=== PATIENT | male | born 1955 | race Caucasian/White ===

== ENCOUNTER 2019-03-28 22:55 | Inpatient (IN) | payer OTHER ==
[~2019-03-28] VITALS: Ht 170.2 cm; Wt 62.5 kg
[2019-03-28] MEDS ORDERED: SODIUM CHLORIDE 0.9% 1,000 ML IV ONE (22:58)
[2019-03-28] MEDS ORDERED: LORazepam 2 MG/ML VIAL IVP ONE (23:00)
[2019-03-28] MEDS ORDERED: ONDANSETRON HCL 4 MG/2 ML VIAL IVP ONE (23:00)
[2019-03-28 23:42] LABS: BASOPHILS % (AUTO) 0.5 % (0.0-2.0); EOSINOPHILS % (AUTO) 0.3 % (1.0-6.0); HEMATOCRIT 50.9 % (41-53); HEMOGLOBIN 17.4 g/dL (13.5-17.5); LYMPHOCYTES # (AUTO) 1.2 K/uL (1.0-4.8); LYMPHOCYTES % (AUTO) 14.3 % (22.0-44.0); MEAN CORPUSCULAR HEMOGLOBIN 32.7 pg (26.0-34.0); MEAN CORPUSCULAR HGB CONC 34.2 G/dL (31.0-37.0); MEAN CORPUSCULAR VOLUME 96 fL (80-100); MONOCYTES % (AUTO) 12.2 % (2.0-9.0); NEUTROPHILS % (AUTO) 72.7 % (40.0-70.0); PLATELET COUNT (AUTO) 236 K/uL (150-450); RED BLOOD CELL COUNT(AUTO) 5.31 MIL/uL (4.50-5.90); RED CELL DISTRIBUTION WIDTH 13.7 % (11.5-14.5)
[2019-03-28 23:51] LABS: ANION GAP 10 mmol/L (8-16); CALCIUM, TOTAL 9.4 mg/dL (8.8-10.5); CARBON DIOXIDE 31 mmol/L (22-29); CHLORIDE 98 mmol/L (98-107); GLOMERULAR FILTR. RATE CALC > 60 mL/min (>60); GLUCOSE,RANDOM 99 mg/dL (70-110); POTASSIUM 3.8 mmol/L (3.5-5.1); SODIUM SERUM 139 mmol/L (136-145); UREA NITROGEN, BLOOD 12 mg/dL (7-18)
[2019-03-28 23:57] LABS: ALANINE AMINOTRANSFERASE 130 U/L (12-78); ALBUMIN 4.1 g/dL (3.4-5.0); ALKALINE PHOSPHATASE 52 U/L (46-116); ASPARTATE AMINOTRANSFERASE 175 U/L (15-37); BILIRUBIN,TOTAL 1.1 mg/dL (0.1-1.0); TOTAL PROTEIN, SERUM 8.7 g/dL (6.4-8.2)
[2019-03-29 00:06] LABS: AMPHET/METH SCREEN,URINE NEGATIVE (NEGATIVE); BARBITURATE SCREEN, URINE NEGATIVE (NEGATIVE); BENZODIAZEPINES SCREEN,URINE NEGATIVE (NEGATIVE); CANNABINOID SCREEN,URINE NEGATIVE (NEGATIVE); COCAINE SCREEN,URINE NEGATIVE (NEGATIVE); METHADONE SCREEN, URINE NEGATIVE (NEGATIVE); OPIATE SCREEN,URINE NEGATIVE (NEGATIVE)
[2019-03-29 00:18] LABS: PHENCYCLIDINE SCREEN,URINE NEGATIVE (NEGATIVE)
[2019-03-29] MEDS ORDERED: ACETAMINOPHEN 325 MG TABLET PO PRN (00:30)
[2019-03-29] MEDS ORDERED: ONDANSETRON HCL 4 MG/2 ML VIAL IVP PRN ×2 (00:30→08:30)
[2019-03-29] MEDS ORDERED: LORazepam 2 MG TABLET PO PRN (00:30)
[2019-03-29] MEDS ORDERED: 0.9% SODIUM CHLORIDE 10 ML SYRINGE IVP PRN (00:30)
[2019-03-29 01:05] VITALS: BP 133/63
[2019-03-29 02:30] VITALS: BP 148/103
[2019-03-29 07:52] VITALS: BP 134/86
[2019-03-29] MEDS ORDERED: MAGNESIUM SULFATE 4 GM/WATER 100 ML IV PRN (08:30)
[2019-03-29] MEDS ORDERED: MAGNESIUM HYDROXIDE SUSPENSION 30 ML UDCUP PO PRN (08:30)
[2019-03-29] MEDS ORDERED: MAGNESIUM SULFATE 2 GM/WATER 50 ML IV PRN (08:30)
[2019-03-29] MEDS: MULTIVITAMINS WITH MINERALS, THERAPEUTIC TABLET PO SCH (09:32)
[2019-03-29] MEDS: ChlordiazePOXIDE HCL 10 MG CAPSULE PO SCH ×3 (09:32→23:38)
[2019-03-29] MEDS: DOCUSATE SODIUM 100 MG CAPSULE PO SCH ×2 (09:32→20:14)
[2019-03-29] MEDS: FAMOTIDINE 20 MG TABLET PO SCH (09:32)
[2019-03-29 12:02] VITALS: BP 136/95
[2019-03-29 12:13] LABS: ALBUMIN 3.2 g/dL (3.4-5.0); MAGNESIUM 1.7 mg/dL (1.80-2.40)
[2019-03-29 15:42] VITALS: BP 138/99
[2019-03-29] MEDS: ACETAMINOPHEN 325 MG TABLET PO PRN (17:04)
[2019-03-29 19:55] VITALS: BP 144/102
[2019-03-29] MEDS: MAGNESIUM OXIDE 400 MG TABLET PO PRN ×2 (20:14→23:38)
[2019-03-30 00:45] VITALS: BP 137/101
[2019-03-30 05:00] VITALS: BP 116/88
[2019-03-30] MEDS ORDERED: LORazepam 2 MG TABLET PO PRN (07:00)
[2019-03-30] MEDS: ChlordiazePOXIDE HCL 10 MG CAPSULE PO SCH ×3 (07:52→23:25)
[2019-03-30] MEDS: MULTIVITAMINS WITH MINERALS, THERAPEUTIC TABLET PO SCH (07:53)
[2019-03-30] MEDS: DOCUSATE SODIUM 100 MG CAPSULE PO SCH ×3 (07:53→20:44)
[2019-03-30] MEDS: FAMOTIDINE 20 MG TABLET PO SCH (07:53)
[2019-03-30 08:59] VITALS: BP 132/82
[2019-03-30] MEDS ORDERED: LORazepam 2 MG TABLET PO SCH (09:00)
[2019-03-30] MEDS: MAGNESIUM OXIDE 400 MG TABLET PO PRN ×3 (09:47→18:46)
[2019-03-30 11:59] VITALS: BP 135/93
[2019-03-30 16:17] VITALS: BP 110/75
[2019-03-30 19:44] VITALS: BP 137/83
[2019-03-30] MEDS: ACETAMINOPHEN 325 MG TABLET PO PRN (23:26)
[2019-03-31 00:26] VITALS: BP 151/107
[2019-03-31] MEDS ORDERED: HydrALAZINE HCL 25 MG TABLET PO PRN (00:30)
[2019-03-31 04:10] VITALS: BP 128/90
[2019-03-31 07:47] LABS: PHOSPHORUS 4.2 mg/dL (2.5-4.9)
[2019-03-31 08:10] VITALS: BP 137/95
[2019-03-31] MEDS: ChlordiazePOXIDE HCL 10 MG CAPSULE PO SCH (08:11)
[2019-03-31] MEDS: MULTIVITAMINS WITH MINERALS, THERAPEUTIC TABLET PO SCH (08:11)
[2019-03-31] MEDS: THIAMINE HCL 100 MG TABLET PO SCH (08:11)
[2019-03-31] MEDS: DOCUSATE SODIUM 100 MG CAPSULE PO SCH ×2 (08:11→20:21)
[2019-03-31] MEDS: FAMOTIDINE 20 MG TABLET PO SCH (08:11)
[2019-03-31] MEDS: FOLIC ACID 1 MG TABLET PO SCH (08:11)
[2019-03-31 10:29] LABS: ALANINE AMINOTRANSFERASE 88 U/L (12-78); ALBUMIN 3.3 g/dL (3.4-5.0); ALKALINE PHOSPHATASE 46 U/L (46-116); ANION GAP 7 mmol/L (8-16); ASPARTATE AMINOTRANSFERASE 87 U/L (15-37); BILIRUBIN,TOTAL 0.8 mg/dL (0.1-1.0); CALCIUM, TOTAL 9.1 mg/dL (8.8-10.5); CARBON DIOXIDE 29 mmol/L (22-29); CHLORIDE 103 mmol/L (98-107); CREATININE 0.95 mg/dL (0.60-1.30); GLOMERULAR FILTR. RATE CALC > 60 mL/min (>60); GLUCOSE,RANDOM 96 mg/dL (70-110); SODIUM SERUM 139 mmol/L (136-145); TOTAL PROTEIN, SERUM 7.2 g/dL (6.4-8.2); UREA NITROGEN, BLOOD 16 mg/dL (7-18)
[2019-03-31] MEDS ORDERED: LORazepam 2 MG TABLET PO PRN (11:20)
[2019-03-31] MEDS: LORazepam 1 MG TABLET PO SCH ×4 (12:00→20:21)
[2019-03-31 12:10] VITALS: BP 119/82
[2019-03-31 15:38] VITALS: BP 129/84
[2019-03-31 20:00] VITALS: BP 123/80
[2019-04-01 00:30] VITALS: BP 119/89
[2019-04-01 04:05] VITALS: BP_SYST 116; BP_SYST 124; BP_DIAS 82; BP_DIAS 86
[2019-04-01] MEDS ORDERED: LORazepam 1 MG TABLET PO PRN (07:00)
[2019-04-01] MEDS: MULTIVITAMINS WITH MINERALS, THERAPEUTIC TABLET PO SCH (08:48)
[2019-04-01] MEDS: FOLIC ACID 1 MG TABLET PO SCH (08:48)
[2019-04-01] MEDS: THIAMINE HCL 100 MG TABLET PO SCH (08:48)
[2019-04-01] MEDS: FAMOTIDINE 20 MG TABLET PO SCH (08:48)
[2019-04-01] MEDS: DOCUSATE SODIUM 100 MG CAPSULE PO SCH (08:50)
[2019-04-01 08:51] VITALS: BP 127/85
[2019-04-01] MEDS ORDERED: LORazepam 1 MG TABLET PO SCH (09:00)
[2019-04-01 11:17] VITALS: BP 121/83
[2019-04-02] MEDS ORDERED: LORazepam 1 MG TABLET PO PRN ×2 (07:00)
[2019-04-03] MEDS ORDERED: LORazepam 1 MG TABLET PO PRN (07:00)
== END 2019-04-01 12:37 | DRG 897 ==
LOC: EMS 22:56 → 6S 23:30
PROVIDERS: ADMIT Internal Medicine; ATTEND Internal Medicine
DX: F10.239 Alcohol dependence with withdrawal, unspecified (principal); E44.0 Moderate protein-calorie malnutrition; F33.0 Major depressive disorder, recurrent, mild; E83.42 Hypomagnesemia; I10 Essential (primary) hypertension; K70.9 Alcoholic liver disease, unspecified; Z68.21 Body mass index [BMI] 21.0-21.9, adult
CPT/HCPCS: 83735; 84100; G0480; J2060; J2405; J7030